=== PATIENT | female | born 1960 | race Caucasian/White ===

== ENCOUNTER → 2018-02-17 | Outpatient (CLI) | payer OTHER | END | disposition home or self-care (01) | LOC: LAB SHORT 11:49 → PLD 11:49 | DX: C44.311 Basal cell carcinoma of skin of nose (principal) | CPT/HCPCS: 88305 ==

== ENCOUNTER 2022-09-04 11:16 | Day surgery (SDC) | payer OTHER ==
[~2022-09-04] VITALS: Ht 167.6 cm; Wt 63.6 kg
[2022-09-04] MEDS ORDERED: ASCO500 PO (11:37)
[2022-09-04] MEDS ORDERED: MAGCIT300 (11:37)
[2022-09-04] MEDS ORDERED: Vitamin D1000 UNI1 PO (11:38)
--- NOTE | 2022-09-05 07:35 | NUR ---
09/05/22 0735 Aneta Melendrez VERIFICATIONS: EDIT CHART.
== END 2022-09-04 23:26 | disposition home or self-care (01) ==
LOC: ORSCMMR 11:16
PROVIDERS: Orthopaedic Surgery
PROC: 0PSH04Z Reposition Right Radius with Internal Fixation Device, Open Approach (ICD-10-PCS; principal; 2022-09-04 12:30)
DX: S52.571A Other intraarticular fracture of lower end of right radius, initial encounter for closed fracture (principal); V00.211A Fall from ice-skates, initial encounter; Y93.21 Activity, ice skating
CPT/HCPCS: C1713; J0690; J2250; J2704; J3010; J7120